=== PATIENT | female | born 1945 | race Caucasian/White ===

== ENCOUNTER → 2017-02-19 | Outpatient (CLI) | payer BC ==
[~2017-02-19] MED LIST: AMOXICILLIN 8751 TAB; ATENOLOL50 MG PO; DILAUDID 2MG TAB2 MG PO; IBU800 M1 PO; LAMISIL250 MG PO; LEVAQUIN 250MG250 MG PO; LIBRAX 5 MG-2.51 CA1 PO; LISINOPRIL10 MG PO; MEDROL 4MG DOSPA4 MG PO; NEURONTIN300 MG PO; OXYCONTIN15 MG PO; PAXIL20 MG PO; PAXIL40 MG PO; PRILOSEC 20MG20 MG PO; XANAX0.5 MG PO; ZOCOR40 MG PO
== END ==
LOC: MC.RAD 14:38
DX: Z12.31 Encounter for screening mammogram for malignant neoplasm of breast (principal)

== ENCOUNTER → 2018-03-05 | Outpatient (CLI) | payer BC | LOC: MC.RAD 09:11 | DX: Z12.31 Encounter for screening mammogram for malignant neoplasm of breast (principal) ==

== ENCOUNTER 2018-12-25 10:00 | Inpatient (IN) | payer BC ==
[~2018-12-25] VITALS: Ht 157.5 cm; Wt 61.5 kg
[2018-12-25] VITALS (157 sets, daily range): BP systolic 118–150; BP diastolic 56–92; PULSE 54–76; TEMP 97.5–98.1; O2SAT 85–99
[2018-12-25] MEDS ORDERED: QUESTRAN4 GM/9 GM PO (11:20)
[2018-12-25] MEDS ORDERED: BENTYL 10MG10 MG/CAP PO (11:21)
[2018-12-25] MEDS ORDERED: TENORETIC 50 501 TAB PO (11:22)
[2018-12-25] MEDS ORDERED: ENTOCORT EC3 MG PO (11:23)
[2018-12-25] MEDS ORDERED: BUSPAR DIVIDOSE15 MG PO (11:24)
[2018-12-25] MEDS ORDERED: LEXAPRO20 MG PO (11:24)
[2018-12-25] MEDS ORDERED: PRINIVIL20 MG PO (11:25)
[2018-12-25] MEDS ORDERED: LYRICA 75MG CAP75 MG PO (11:25)
[2018-12-25] MEDS ORDERED: RESTORIL30 MG PO (11:28)
--- NOTE | 2018-12-25 17:20 | NUR ---
Report received from PACU,RN at 1715. Pt arrived to ICU bed 7 at 1720 via bed. Pt A/Ox3. states abd pain 3/10. Denies any nausea at this time. Abd lap x6 sites, bandaids c/d/i. Discussed plan of care r/t medications and clear liquid diet. Pt verbalized understanding. Call light in reach.
--- NOTE | 2018-12-25 19:05 | NUR ---
Bedside report received from Nida Jauregui RN. Pt resting on stomach at this time until asked to lay on back for stomach assessment. Pt is pleasant and cooperative.
--- NOTE | 2018-12-25 19:05 | NUR ---
Bedside report received from Nida Jauregui RN.
--- NOTE | 2018-12-25 19:09 | NUR ---
report given to RIKKI lauren.
--- NOTE | 2018-12-25 19:30 | NUR ---
Spoke with pharmacy regarding restarting Budesonide 3mg ECC PO. Pharmacy does not carry this medication. Pt will need to be notified to bring in this home medications. Dr. Snow gave the okay to restart.
--- NOTE | 2018-12-25 19:44 | NUR ---
Spoke with Priscilla in pharmacy regarding Lyrica. Per pts pharmacy record pt has been filling a 75mg capsule. Verified with pt that there has not been an update or increase in medication dosage that pt is aware of, and pt verified that what has been filled at the pharmacy pt has been taking at home. Notified pharmacist at this time.
--- NOTE | 2018-12-25 20:15 | NUR ---
PT at bedside with pt to instruct use of IS.
--- NOTE | 2018-12-25 20:17 | NUR ---
Pt assessment complete. Pt resting in bed at this time. Pleasant and cooperative with cares. Pt reports wanting to hold off on HS Restoril since pt is "sleepy" with the pain medication being administered. Discussed the benefits to holding off on the Restoril and will reassess the need around midnight with Tylenol administration. Agreed to check on pain every couple hours with pt through out this shift. Pt lungs are CTA although diminished with expiration. Took night time medications one at a time with sips of water, no complaints swallowing at this time.
--- NOTE | 2018-12-25 20:29 | NUR ---
Called pts spouse Zeke to notify that the hospital does not carry Budesonide in the pill form and requested that spouse bring for pt administration starting tomorrow. Zkee verbalized understanding and will call in the morning to ensure the right medication will be brought.
[2018-12-26] VITALS (514 sets, daily range): BP systolic 119–128; BP diastolic 61–69; PULSE 61–71; TEMP 98.1–98.3; O2SAT 71–100
--- NOTE | 2018-12-26 | NUR ---
Pt resting in bed. Intermittent confusion noted over the last 2 hours although pt has been resting in bed. Confusion has mostly been over pulse O2 probe located on hand. Nurse noted pt trying to pull it off as pt reported "I need to plug this in." This nurse would notify the pt of what the probe was and why we need it to stay on, pt would say "okay" lay back and with in moments start messing with the probe again. The probe was pulled off and replaced on another finger and pt has not been noted to mess with it since. Pt was also noted to have O2 off a couple times when nurse noted the O2 has decreased into the 80's. Pt is pleasant and has reported "Im not thinking right." Pt has been awake and reassessment was provided on need for sleeping pill from earlier this shift when pt wanted to see if the pain medication would help pt sleep. Pt denies any need for pain medication at this time and requested sleeping pill.
--- NOTE | 2018-12-26 06:15 | NUR ---
Pt did not urinate yet this shift despite sitting on the commmode X2. Pt reports history of urinary retention. Upon bladder scan pt was noted to have >600 ml of urine. Edy provided order for a straight cath. Upon arrival to pts room pt was in the commode and urinated 150ml. Agreement was received from pt to go ahead and straight cath to get the rest of the urine drained from the bladder. Pt tolerated procedure well with results of 550 out. Urine is yellow and clear in color.
--- NOTE | 2018-12-26 07:10 | NUR ---
Report recieved from Alisa BRANDT. Patient laying in bed. Awake, alert yet confused at times with conversation. Call light at side. Denies complaints at this time.
--- NOTE | 2018-12-26 07:10 | NUR ---
Report provided to Alis Mills RN. Pt resting in bed at this time although reported to this nurse "he keeps calling me Pat, I go by Annie. I am afraid there is some confusion." This nurse notified pt that there has been no man in the pts room this morning and that she has been called [facility] by this nurse all shift.
--- NOTE | 2018-12-26 10:22 | NUR ---
SW met with patient and about discharge planning. Patient lives independently at home with her and plans to return there upon discharge. Patient's PCP is Dr Zhang and she obtains prescriptions from [facility] pharmacy. Patient reports no difficulty obtaining medications. Patient does not use any home health services or DME in the home. Patient reports she does have a DPOA. SW does not anticipate any discharge needs.
--- NOTE | 2018-12-26 15:54 | NUR ---
Report recieved from RIKKI Snell. Pt transported to [facility] via wheelchair. at bedside. Stating incisional pain at 2/10 (acceptable level per pt). Pt ambulated from wheelchair to bed without difficulty. IV fluids infusing on pump, initial vitals obtained. Blinds closed, door closed, lights dimmed per pt request to sleep. Call light/cellphone/room-phone/water within reach. No complaints at this time.
--- NOTE | 2018-12-26 21:00 | NUR ---
Pt. sitting up in bed at this time. Pt. is A&OX3, assessment complete. INT to lt. wrist patent. Six abd. lap sites noted CDI with bandaids. Pt. reports pain at a 5 on pain scale at this time. Will give pain meds per orders. Pt. denies further needs, call light within reach.
[2018-12-27 01:04] VITALS: BP 145/64; PULSE 69; TEMP 98.7
[2018-12-27 03:51] VITALS: BP 132/87; PULSE 69; TEMP 98
[2018-12-27 08:05] VITALS: BP 132/56; PULSE 67; TEMP 97.7
--- NOTE | 2018-12-27 10:30 | NUR ---
Patient alert and oriented, answers questions appropriately. See assessment. Abdomen soft, non tender, non distended. +Flatus. Lap sites with edges well approximated, no drainage noted. Encouraged ambulation. No c/o at this time.
[2018-12-27 12:03] VITALS: BP 125/56; PULSE 71; TEMP 97.4
--- NOTE | 2018-12-27 14:41 | NUR ---
Discharge instructions reviewed with patient and spouse, verbalized understanding. Discharged via wheelchair to auto/home with spouse at 1440.
== END 2018-12-27 14:40 | disposition home or self-care (01) | DRG 328 ==
LOC: SDCO 10:00 → ICU 17:59 → SDCO 12-26 11:02 → ICU 12-26 11:03 → SURG 12-26 18:29
PROVIDERS: ADMIT Surgery
PROC: 0DV44ZZ Restriction of Esophagogastric Junction, Percutaneous Endoscopic Approach (ICD-10-PCS; 2018-12-25)
PROC: 0DS64ZZ Reposition Stomach, Percutaneous Endoscopic Approach (ICD-10-PCS; 2018-12-25)
PROC: 8E0W4CZ Robotic Assisted Procedure of Trunk Region, Percutaneous Endoscopic Approach (ICD-10-PCS; 2018-12-25)
PROC: 0BUT4JZ Supplement Diaphragm with Synthetic Substitute, Percutaneous Endoscopic Approach (ICD-10-PCS; principal; 2018-12-25 12:45)
DX: K44.9 Diaphragmatic hernia without obstruction or gangrene (principal); K21.9 Gastro-esophageal reflux disease without esophagitis; I10 Essential (primary) hypertension; M79.7 Fibromyalgia; K52.831 Collagenous colitis; K31.89 Other diseases of stomach and duodenum
CPT/HCPCS: OP; A9284; C1781; J0690; J1100; J1170; J2270; J2405; J2704; J2710; J3010; J7042; J7120

== ENCOUNTER → 2019-03-14 | Outpatient (CLI) | payer MEDICARE, OTHER ==
[~2019-03-14] MED LIST changes: +BENTYL 10MG10 MG/CAP PO; +BUSPAR DIVIDOSE15 MG PO; +ENTOCORT EC3 MG PO; +LEXAPRO20 MG PO; +LYRICA 75MG CAP75 MG PO; +PRINIVIL20 MG PO; +QUESTRAN4 GM/9 GM PO; +RESTORIL30 MG PO; +TENORETIC 50 501 TAB PO
== END ==
LOC: MC.RAD 13:19
DX: Z12.31 Encounter for screening mammogram for malignant neoplasm of breast (principal)

== ENCOUNTER → 2020-03-16 | Outpatient (CLI) | payer MEDICARE, OTHER | LOC: MC.RAD 11:01 | DX: Z12.31 Encounter for screening mammogram for malignant neoplasm of breast (principal) ==

== ENCOUNTER → 2021-03-18 | Outpatient (CLI) | payer MEDICARE, OTHER | LOC: MC.RAD 09:59 | DX: Z12.31 Encounter for screening mammogram for malignant neoplasm of breast (principal) ==

== ENCOUNTER → 2022-04-03 | Outpatient (CLI) | payer MEDICARE | LOC: MC.RAD 13:58 | DX: N63.20 Unspecified lump in the left breast, unspecified quadrant (principal) ==

== ENCOUNTER 2022-04-24 16:45 | Emergency (ER) | payer MEDICARE ==
[~2022-04-24] VITALS: Ht 157.5 cm; Wt 58.6 kg
[2022-04-24 17:01] VITALS: TEMP 97.9
[2022-04-24 19:36] LABS: ALANINE AMINOTRANSFERASE 13 U/L (0-55); ALBUMIN 3.9 gm/dL (3.4-4.8); ALKALINE PHOSPHATASE 58 U/L (40-150); ANION GAP 10 mmol/L (7-16); AST,SGOT 16 U/L (5-34); BILIRUBIN,TOTAL 0.5 mg/dL (0.2-1.2); BLOOD UREA NITROGEN 14 mg/dL (10-20); CALCIUM 9.5 mg/dL (8.4-10.2); CARBON DIOXIDE 28 mmol/L (23-31); CHLORIDE 99 mmol/L (98-107); CREATININE, serum 0.66 mg/dL (0.57-1.11); GLUCOSE 106 mg/dL (70-99); POTASSIUM 3.4 mmol/L (3.5-4.5); SODIUM 137 mmol/L (136-145); TOTAL PROTEIN 6.9 gm/dL (6.2-8.1)
[2022-04-24 19:46] LABS: BASO % 0.4 % (0.0-2.0); EOS # 0.1 K/mm3 (0.0-0.7); EOS % 1.9 % (0.0-4.0); GRAN # 3.8 K/mm3 (1.4-6.5); GRAN % 53.7 % (42.2-75.2); HEMATOCRIT 42.7 % (37.0-47.0); HEMOGLOBIN 14.5 g/dl (12.5-16.0); LYMPH # 2.2 K/mm3 (1.2-3.4); MEAN CELL VOLUME 96 fl (80.0-100.0); MEAN CORPUSCULAR HEMOGLOBIN 33 pg (27-31); MEAN CORPUSCULAR HGB CONC 34 g/dl (33.0-37.0); MEAN PLATELET VOLUME 8.9 fl (7.4-10.4); MONO # 0.8 K/mm3 (0.1-0.6); MONO % 11.9 % (1.7-9.3); PLATELET COUNT 273 K/mm3 (130-400); RED BLOOD COUNT 4.45 M/mm3 (4.10-5.30); REDCELL DISTRIBUTION WIDTH-CV 11.7 % (11.5-14.5)
[2022-04-24 19:46] LABS: TROPONIN-I < 0.010 ng/mL (0.00-0.033)
[2022-04-24 21:21] VITALS: BP 142/76; PULSE 65
== END 2022-04-24 21:33 | disposition home or self-care (01) ==
LOC: COL.ER 16:45
PROVIDERS: Family Medicine; Nurse Practitioner
DX: I10 Essential (primary) hypertension (principal)
CPT/HCPCS: J0360

== ENCOUNTER 2023-11-28 05:43 | Emergency (ER) | payer MEDICARE ==
[2023-11-28] MEDS ORDERED: Midazolam 2 MG/2 ML VIAL IV ONE (06:30)
[2023-11-28] MEDS ORDERED: NS 500 ML IV ONE (06:30)
[2023-11-28 06:50] LABS: BASO # 0.1 K/mm3 (0.0-0.2); BASO % 0.6 % (0.0-2.0); EOS # 0.1 K/mm3 (0.0-0.7); EOS % 0.6 % (0.0-4.0); GRAN # 7.9 K/mm3 (1.4-6.5); GRAN % 75.1 % (42.2-75.2); HEMATOCRIT 39.7 % (37.0-47.0); HEMOGLOBIN 14.1 g/dl (12.5-16.0); LYMPH # 1.7 K/mm3 (1.2-3.4); LYMPH % 16.4 % (20.0-51.0); MEAN CELL VOLUME 94 fl (80.0-100.0); MEAN CORPUSCULAR HEMOGLOBIN 34 pg (27-31); MEAN CORPUSCULAR HGB CONC 36 g/dl (33.0-37.0); MEAN PLATELET VOLUME 8.9 fl (7.4-10.4); MONO # 0.8 K/mm3 (0.1-0.6); MONO % 7.1 % (1.7-9.3); PLATELET COUNT 317 K/mm3 (130-400); RED BLOOD COUNT 4.21 M/mm3 (4.10-5.30); REDCELL DISTRIBUTION WIDTH-CV 11.6 % (11.5-14.5)
[2023-11-28 07:00] LABS: MAGNESIUM 1.3 mg/dL (1.6-2.6)
[2023-11-28 07:23] LABS: THYROID STIMULATING HORMONE 2.172 uIU/mL (0.350-4.940)
[2023-11-28] MEDS ORDERED: niCARdipine 200 ML IV ONE (07:30)
[2023-11-28] MEDS ORDERED: levETIRAcetam 100 ML IV ONE (07:30)
[2023-11-28 07:31] LABS: TROPONIN-I < 0.010 ng/mL (0.00-0.033)
[2023-11-28] MEDS ORDERED: Pantoprazole 40 MG in NS 10 ML IV ONE (07:45)
[2023-11-28 08:11] LABS: PROTHROMBIN TIME 10.8 SECONDS (9.7-12.8)
[2023-11-28] MEDS ORDERED: Morphine 4 MG/ML VIAL IV ONE (08:15)
[2023-11-28 09:00] VITALS: BP 131/89; PULSE 78
== END 2023-11-28 09:15 | disposition short-term general hospital (02) ==
LOC: COL.ER 05:43
PROVIDERS: Emergency Medicine; Internal Medicine
DX: S06.5X0A Traumatic subdural hemorrhage without loss of consciousness, initial encounter (principal); R40.2410 Glasgow coma scale score 13-15, unspecified time; W22.09XA Striking against other stationary object, initial encounter
CPT/HCPCS: J1953; J2250; J2270; J2404; J3360; J7040